=== PATIENT | female | born 1980 | race African-American/Black ===

== ENCOUNTER 2016-08-08 12:24 | Emergency (ER) | payer OTHER ==
[~2016-08-08] VITALS: Ht 157.5 cm; Wt 71.2 kg
[2016-08-08 15:24] VITALS: BP 110/75
== END 2016-08-08 15:25 | disposition home or self-care (01) ==
LOC: ED 12:24
DX: M79.604 Pain in right leg (principal); R22.41 Localized swelling, mass and lump, right lower limb; R06.02 Shortness of breath; N28.9 Disorder of kidney and ureter, unspecified; Z79.899 Other long term (current) drug therapy
CPT/HCPCS: J1885; Q0092

== ENCOUNTER 2016-11-27 23:38 | Emergency (ER) | payer OTHER ==
[2016-11-28 02:34] LABS: CALCIUM 8.5 mg/dL (8.5-10.1); CARBON DIOXIDE 24.7 mmol/L (21-32); CREATININE SERUM 1.5 mg/dL (0.6-1.0); POTASSIUM SERUM 3.6 mmol/L (3.5-5.1)
[2016-11-28 02:40] LABS: ALBUMIN 3.7 g/dL (3.4-5.0); BILIRUBIN TOTAL 0.13 mg/dL (0.20-1.00); TOTAL PROTEIN, SERUM 7.4 g/dL (6.4-8.2)
[2016-11-28 02:53] LABS: PLATELET COUNT 259 x10^3mcL (130-400); RED CELL DISTRIBUTION WIDTH 14.1 % (11.5-14.5)
[2016-11-28 03:50] LABS: MONOCYTE 15 % (0-7); SEGMENTED NEUTROPHILS 43 % (37-75)
[2016-11-28 03:51] LABS: ATYPICAL LYMPH 2 %; BAND NEUTROPHIL 0 % (0-10); BASOPHIL 0 % (0-2)
[2016-11-28 03:52] LABS: rbc morphology (normal/abnorm) ABNORMAL (NORMAL)
[2016-11-28 03:54] LABS: PLATELET MORPHOLOGY PLATELETS NORMAL
[2016-11-28 04:46] VITALS: BP 101/62
== END 2016-11-28 04:46 | disposition home or self-care (01) ==
LOC: ED 23:38
PROVIDERS: Emergency Medicine
DX: R10.13 Epigastric pain (principal); Z87.42 Personal history of other diseases of the female genital tract
CPT/HCPCS: 36415; Q0162

== ENCOUNTER 2017-04-08 11:51 | Emergency (ER) | payer OTHER ==
[~2017-04-08] VITALS: Ht 162.6 cm; Wt 70.8 kg
[2017-04-08 12:18] LABS: BASOPHIL % 0.5 % (0-2); PLATELET COUNT 319 x10^3mcL (130-400); RED CELL DISTRIBUTION WIDTH 14.2 % (11.5-14.5)
[2017-04-08 12:30] LABS: CALCIUM 8.7 mg/dL (8.5-10.1); CARBON DIOXIDE 26.9 mmol/L (21-32); CREATININE SERUM 1.5 mg/dL (0.6-1.0); POTASSIUM SERUM 3.8 mmol/L (3.5-5.1)
[2017-04-08 12:34] LABS: BILIRUBIN TOTAL 0.31 mg/dL (0.20-1.00); TOTAL PROTEIN, SERUM 8.2 g/dL (6.4-8.2)
[2017-04-08 15:26] VITALS: BP 115/77
== END 2017-04-08 16:07 | disposition home or self-care (01) ==
LOC: ED 11:51
PROVIDERS: Emergency Medicine
DX: N83.201 Unspecified ovarian cyst, right side (principal); N18.3 Chronic kidney disease, stage 3 (moderate); L93.0 Discoid lupus erythematosus
CPT/HCPCS: J1885

== ENCOUNTER 2017-07-20 11:26 | Emergency (ER) | payer OTHER ==
[~2017-07-20] VITALS: Ht 165.1 cm; Wt 72.6 kg
[2017-07-20 12:16] VITALS: BP 122/90; Ht 165.1 cm; Wt 72.6 kg
== END 2017-07-20 14:41 | disposition left against medical advice (07) ==
LOC: ED 11:26
DX: Z53.21 Procedure and treatment not carried out due to patient leaving prior to being seen by health care provider (principal)

== ENCOUNTER 2020-06-07 05:43 | Emergency (ER) | payer OTHER ==
[~2020-06-07] VITALS: Ht 157.5 cm; Wt 71.7 kg
[2020-06-07 06:38] VITALS: BP 123/78; Ht 157.5 cm; Wt 71.7 kg
== END 2020-06-07 08:37 | disposition home or self-care (01) ==
LOC: ED 05:43
DX: R25.2 Cramp and spasm (principal); N18.30 Chronic kidney disease, stage 3 unspecified